=== PATIENT | male | born 1935 | race Caucasian/White ===

== ENCOUNTER → 2023-03-11 15:14 | Outpatient (BNVA) | payer MEDICARE, MEDICAID, SELFPAY | PROVIDERS: PCP Nurse Practitioner; Visit Provider Family Medicine | DX: E07.9 Disorder of thyroid, unspecified (principal); Z95.4 Presence of other heart-valve replacement; G89.4 Chronic pain syndrome | CPT/HCPCS: 80053; 84443; 85025 ==

== ENCOUNTER → 2023-09-09 11:02 | Outpatient (BNVA) | payer MEDICARE, MEDICAID, SELFPAY | PROVIDERS: PCP Family Medicine; Visit Provider Family Medicine | DX: E07.9 Disorder of thyroid, unspecified (principal); M15.9 Polyosteoarthritis, unspecified; Z95.4 Presence of other heart-valve replacement | CPT/HCPCS: 80053; 84443; 85025 ==

== ENCOUNTER → 2023-11-01 13:16 | Outpatient (BNVA) | payer MEDICARE, MEDICAID, SELFPAY | PROVIDERS: PCP Family Medicine; Visit Provider Family Medicine | DX: I10 Essential (primary) hypertension (principal) | CPT/HCPCS: 84443 ==

== ENCOUNTER → 2024-01-05 12:13 | Outpatient (BNVA) | payer MEDICARE, MEDICAID, SELFPAY | PROVIDERS: PCP Family Medicine; Visit Provider Family Medicine | DX: E07.9 Disorder of thyroid, unspecified (principal); I10 Essential (primary) hypertension | CPT/HCPCS: 80053; 84443 ==

== ENCOUNTER → 2024-05-23 14:42 | Outpatient (BNVA) | payer MEDICARE, MEDICAID, SELFPAY | PROVIDERS: PCP Family Medicine; Visit Provider Family Medicine | DX: K21.00 Gastro-esophageal reflux disease with esophagitis, without bleeding (principal) | CPT/HCPCS: 82270 ==

== ENCOUNTER → 2024-06-29 16:09 | Outpatient (BNVA) | payer MEDICARE, MEDICAID, SELFPAY | PROVIDERS: PCP Family Medicine; Visit Provider Family Medicine | DX: I10 Essential (primary) hypertension (principal) | CPT/HCPCS: 84439; 84443 ==

== ENCOUNTER 2024-12-22 14:58 | Outpatient (CLI) | payer MEDICARE, MEDICAID, SELFPAY ==
--- NOTE | 2024-12-22 16:00 | MR_ITS ---
WS: [id number] MRI LUMBAR SPINE NONCONTRAST TECHNIQUE: Sagittal T1, T2 and STIR imaging. Axial T1 and T2 imaging. CLINICAL INFORMATION: M54.16 - Radiculopathy, lumbar region COMPARISON: None. FINDINGS: Counting performed from the craniocervical junction. 12 thoracic vertebral bodies. Small riblets at L1. Last 6 vertebral bodies considered L1-L6 for the purposes of this dictation. Recommend plain film correlation prior to surgical intervention. Signed anterolisthesis T8 on T9 with mild chronic compression and anterior wedging T8-T9. Mild central canal stenosis T8-T9 with a central disc protrusion and slight contact of the thoracic cord. This could be further evaluated with thoracic spine MRI. Mild central canal stenosis in the cervical spine on the chaplain imaging. L1-L2: Mild disc bulging with narrowing of the RIGHT subarticular recess. Mild RIGHT foraminal narrowing. L2-L3: Mild annular bulging. Narrowing of the RIGHT greater than LEFT subarticular recess. Mild central canal stenosis. L3-L4: Slight retrolisthesis. Moderate central canal stenosis. Impingement of the traversing L4 nerve roots bilaterally. Moderate facet arthropathy. Moderate RIGHT foraminal narrowing impinges the exiting RIGHT L3 nerve root. L4-L5: Moderate central canal stenosis with impingement of traversing L5 nerve roots bilaterally. Moderate LEFT bony foraminal narrowing. Moderate facet arthropathy. L5-L6: RIGHT paracentral protrusion impinges the RIGHT subarticular recess. Moderate central canal stenosis. Severe LEFT and moderate RIGHT foraminal narrowing. Moderate facet arthropathy. L6-S1: Mild disc bulging with osteophytic ridging. Impingement LEFT subarticular recess and traversing LEFT S1 nerve root. Moderate far RIGHT foraminal narrowing Visualized pelvic bony structures: Normal. Paravertebral soft tissues: Normal. Small LEFT renal cysts. MR/MR lumbar spine wo con* [id number] IMPRESSION: 1. Counting performed the craniocervical junction. Lumbar vertebral bodies lab eled L1-L6 for the purposes of this dictation. Recommend plain film correlation prior to surgical intervention. Small riblets at L1. 2. Moderate central canal stenosis L3-L4 L4-L5 and L5-S1 described above. Impi ngement on the LEFT subarticular recess L4-5 and RIGHT subarticular recess L5-L 6. 3. Narrowing of the RIGHT L2-3 and L3-4 subarticular recess. 4. Foraminal narrowing severe at LEFT L5-L6. 5. Disc bulging L6-S1 impinges the LEFT S1 nerve root.
== END 2024-12-22 14:59 | disposition home or self-care (01) ==
LOC: RAD 15:00
PROVIDERS: PCP Family Medicine; Visit Provider Nurse Practitioner Family
DX: M54.16 Radiculopathy, lumbar region (principal); M48.061 Spinal stenosis, lumbar region without neurogenic claudication; M99.63 Osseous and subluxation stenosis of intervertebral foramina of lumbar region; M51.360 Other intervertebral disc degeneration, lumbar region with discogenic back pain only
CPT/HCPCS: 72148

== ENCOUNTER → 2025-01-01 10:48 | Outpatient (BNVA) | payer MEDICARE, MEDICAID, SELFPAY | PROVIDERS: PCP Family Medicine; Visit Provider Orthopaedic Surgery | DX: M48.061 Spinal stenosis, lumbar region without neurogenic claudication (principal); M54.16 Radiculopathy, lumbar region; M51.362 Other intervertebral disc degeneration, lumbar region with discogenic back pain and lower extremity pain; Z01.818 Encounter for other preprocedural examination; Z76.89 Persons encountering health services in other specified circumstances | CPT/HCPCS: 36415; 72110; 80053; 81001; 85025; 99204 ==

== ENCOUNTER → 2025-01-08 12:43 | Outpatient (BNVA) | payer MEDICARE, SELFPAY | PROVIDERS: PCP Family Medicine; Visit Provider Family Medicine | DX: Z01.818 Encounter for other preprocedural examination (principal); I49.3 Ventricular premature depolarization; I44.4 Left anterior fascicular block; I42.2 Other hypertrophic cardiomyopathy | CPT/HCPCS: 93005 ==

== ENCOUNTER 2025-01-12 08:24 | Day surgery (SDC) | payer MEDICARE, MEDICAID, SELFPAY ==
[2025-01-12] VITALS (11 sets, daily range): BP systolic 131–163; BP diastolic 65–94; PULSE 63–76; RESP 15–23; TEMP 36.1–36.7; O2SAT 96–100; BMI 22.5
--- NOTE | 2025-01-12 08:54 | XR_ITS ---
WS: [id number] C-ARM RADIOGRAPHS LUMBAR SPINE; 2 IMAGES HISTORY: OR PICS COMPARISON: None available. Intraoperative imaging during spinal decompression surgery. XR/XR lumbar spine 1V [id number] IMPRESSION: Intraoperative imaging.
--- NOTE | 2025-01-12 09:52 | W.PM.OPSUD ---
Surgery/Procedure H&P Update DATE OF PROCEDURE: January 12, 2025 DATE H&P PERFORMED: 01/01/25 H&P UPDATE INFORMATION: I have reviewed H&P completed within last 30 days, I have examined patient prior to procedure and No changes to prior documentation PREOP DIAGNOSIS: Lumbar stenosis neurogenic claudication PLANNED PROCEDURE: Operation Date: 01/12/25 10:45 Proposed Procedures p Lumbar Spine Decompression(Not Applicable) - Dax Falk DO
--- NOTE | 2025-01-12 10:03 | ANES.PREANE2 ---
Pre-Anesthetic Assessment Height/Weight: Height 1.83 m Weight 75.296 kg Temp Pulse Resp BP Pulse Ox O2 Del Method 97.7 F 66 17 131/94 98 Room Air 01/12/25 09:03 01/12/25 09:03 01/12/25 09:03 01/12/25 09:03 01/12/25 09:03 01/12/25 09:03 Preop Diagnosis: Lumbar stenosis neurogenic claudication Operation Date: 01/12/25 10:45 Proposed Procedures p Lumbar Spine Decompression(Not Applicable) - Dax Falk DO Familial anesthetic complications: none Was Beta Cathy taken within 24 hours: Yes Was Clonidine taken within 24 hours: N/A Last intake: Intake Last Liquid Date 01/11/25 Last Liquid Time 19:00 Last Solid Date 01/11/25 Last Solid Time 19:00 Social Tobacco smoked 40 years. 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 denies parasthesia Anesthetic Plan ASA status: 3 Anesthesia: General Risk of > 500 ml blood loss (7ml/kg in children): No Medications/Allergies Home Medications ?Medication ?Instructions ?Recorded ?Confirmed ?Last Taken ?Type fluticasone 250 mcg-salmeterol 50 1 inh inhalation BID 12/08/22 01/12/25 01/11/25 History mcg/dose blistr powdr for inhalation (Advair Diskus) exgmronmuczg-urumkntc-tumyax tablet 1 tab PO DAILY 12/08/22 01/12/25 01/11/25 History vitamins A,C,V-rqyp-wkmwvs 4,296 1 cap PO DAILY 12/08/22 01/12/25 01/11/25 History mcg-226 mg-90 mg capsule (PreserVision AREDS) lidocaine 5 % topical patch 1 patch topical DAILY #15 ea 12/17/22 01/12/25 Unknown Rx guaifenesin 1,200 mg tablet, 1,200 mg PO BID 09/09/23 01/12/2525 History extended release 12 hr (Mucinex) metoprolol tartrate 25 mg tablet 25 mg PO DAILY #90 tabs 02/03/24 01/12/25 01/12/25 Rx amiodarone 100 mg tablet 100 mg PO DAILY #90 tabs 06/29/24 01/11/25 01/11/25 Rx atorvastatin 20 mg tablet 20 mg PO DAILY #90 tabs 06/29/24 01/12/25 01/11/25 Rx rivaroxaban 20 mg tablet 20 mg PO DAILY #90 tabs 06/29/24 01/12/25 01/10/25 Rx cyclobenzaprine 10 mg tablet 10 mg PO BID PRN muscle spasm #60 07/27/24 01/12/25 01/09/25 Rx tabs colostomy supplies: pouches #1 ea 08/14/24 01/01/25 Unknown Rx colostomy supplies: wafers #1 ea 08/14/24 01/01/25 Unknown Rx hydrochlorothiazide 25 mg tablet 25 mg PO DAILY #90 tabs 09/22/24 01/12/25 01/11/25 Rx albuterol sulfate 1.25 mg/3 mL 1.25 mg (3 mL) inhalation QID PRN 10/05/24 01/12/25 01/10/25 Rx solution for nebulization shortness of breath or wheezing #180 mL levothyroxine 25 mcg tablet 25 mcg PO DAILY #90 tabs 10/05/24 01/12/25 01/11/25 Rx (Unithroid) cetirizine 10 mg capsule (Zyrtec) 10 mg PO DAILY PRN allergies #90 10/16/24 01/12/25 01/10/25 Rx caps prednisone 10 mg tablet 10 mg PO DAILY chronic arthritis 12/04/24 01/11/25 01/10/25 Rx #60 tabs fluticasone propionate 50 2 spray intranasal DAILY #16 grams 12/11/24 01/12/25 01/11/25 Rx mcg/actuation nasal spray,suspension (Flonase Allergy Relief) albuterol sulfate 90 mcg/actuation 90 mcg inhalation PRN 01/11/25 01/12/25 01/10/25 History aerosol inhaler dicyclomine 20 mg tablet 20 mg PO BID 01/11/25 01/12/25 01/11/25 History oxycodone 5 mg tablet 10 mg PO Q8H PRN pain 01/11/25 01/12/25 01/11/25 History pantoprazole 20 mg tablet,delayed 20 mg PO DAILY 01/11/25 01/12/25 01/12/25 History release Allergies Allergy/AdvReac Type Severity Reaction Status Date / Time No Known Allergies Allergy Verified 01/12/25 08:56 Current Medications Generic Name Dose Route Start Last Admin Trade Name Freq PRN Reason Stop Dose Admin Sodium Chloride 1,000 mls @ 30 mls/hr 01/12/25 08:30 01/12/25 09:14 Sodium Chloride 0.9% IV 01/13/25 08:29 30 mls/hr .Q24H CALI Administration PFSH Anesthesia Medical History DDD (degenerative disc disease), lumbar Lumbar radiculopathy Acute bacterial sinusitis GERD with esophagitis Chronic obstructive pulmonary disease Osteoarthritis involving multiple joints on both sides of body Chronic pain syndrome Surgical History Status post hernia repair Status post colostomy Status post cholecystectomy Status post heart valve replacement Family History Mother Cancer Social History Smoking and tobacco/nicotine status: former use of tobacco/nicotine
[2025-01-12] MEDS: ceFAZolin 2,000 mg SDV 2000 MG IVP (11:10)
[2025-01-12] MEDS: lidocaine-epi 1% 20 mL INJ (11:18)
--- NOTE | 2025-01-12 12:05 | PM.OP ---
Operative Report Date of procedure: January 12, 2025 Pre-op diagnosis: Lumbar stenosis with neurogenic claudication Post-op diagnosis: same Procedure done: L4-5 laminectomy with partial facetectomy Surgeon: Dax Falk DO Estimated blood loss (mL): 15 Procedure: L4-5 laminectomy with partial facetectomy Patient is brought to the operative suite. After undergoing anesthesia they are placed in the prone position. All areas of impingement are well padded. Patient is then prepped and draped in the normal sterile fashion. A skin incision is made over the L4/5 level. This is confirmed under c-arm guidance. A series of dilators are passed and the tubular retractor is docked on the L4 lamina. A bovie is used to clear the soft tissue off the lamina and the L 4/5 facet joint. A high speed casie is then used to perform the laminectomy and take down the medial aspect of the L 4/5 facet joint. A kerrison rongeure was then used to take down the remaining lamina and smooth the edge of the laminectomy up to the point where the ligamentum flavum attaches. Attention was then brought to the medial aspect of the facet joint. The remaining medial aspect of the superior and inferior aspect of the facet joint were taken down with the kerrison from the pedicle of L4 to L 5. The facet joint had significant hypertrophy. Attention was then brought to the Ligamentum Flavum. The ligament was taken down from the lamina of L4 to L5 and out medially to the remaining facet joint. The ligament was thick. The dura was then exposed. The dura was in good repair. The L4 nerve was then traced with a curette out the L4/5 foramen and found to be adequately decompressed. The L5 nerve was traced with a curette around the L5 pedicle. The lateral recess was opened with a kerrison helping to further decompress the L5 nerve. Wound is then irrigated copiously with saline and surgiflo is used to stop any bleeding. The tubular retractor is removed and the wound is closed with vicryl and monocryl suture. Steri strips were applied. A sterile dressing is then placed. Patient was then placed in the supine position and transferred to the PACU in stable condition.
[2025-01-12] MEDS: oxyCODONE 5 mg IR Tab/Cap 10 MG PO (12:54)
== END 2025-01-12 13:29 | disposition home or self-care (01) ==
PROVIDERS: PCP Family Medicine; Visit Provider Orthopaedic Surgery
PROC: (CPT 63005; principal; 2025-01-12 10:25)
DX: M48.062 Spinal stenosis, lumbar region with neurogenic claudication (principal); J44.9 Chronic obstructive pulmonary disease, unspecified; I25.10 Atherosclerotic heart disease of native coronary artery without angina pectoris; M19.90 Unspecified osteoarthritis, unspecified site; K21.9 Gastro-esophageal reflux disease without esophagitis; Z87.891 Personal history of nicotine dependence
CPT/HCPCS: 63047; 72020; 76000; J0131; J0690; J1100; J2405; J2704; J3010; J3490; J7030; J9999

== ENCOUNTER → 2025-02-22 14:51 | Outpatient (BNVA) | payer MEDICARE, MEDICAID, SELFPAY | PROVIDERS: PCP Family Medicine; Visit Provider Orthopaedic Surgery | DX: Z98.890 Other specified postprocedural states (principal) | CPT/HCPCS: 99024 ==

== ENCOUNTER → 2025-04-03 10:49 | Outpatient (BNVA) | payer MEDICARE, MEDICAID, SELFPAY | PROVIDERS: PCP Family Medicine; Visit Provider Orthopaedic Surgery | DX: Z98.890 Other specified postprocedural states (principal) | CPT/HCPCS: 72050; 99024 ==

== ENCOUNTER → 2025-04-25 11:29 | Outpatient (BNVA) | payer MEDICARE, MEDICAID, SELFPAY | PROVIDERS: PCP Family Medicine; Visit Provider Family Medicine | DX: I10 Essential (primary) hypertension (principal); E07.9 Disorder of thyroid, unspecified; E78.00 Pure hypercholesterolemia, unspecified | CPT/HCPCS: 80053; 80061; 84443 ==